=== PATIENT | male | born 1950 | race Caucasian/White ===

== ENCOUNTER → 2017-04-28 | Outpatient (CLI) | payer SELFPAY ==
[~2017-04-28] MED LIST: ACET325 PO; Acidophilus La100 GM PO; BISA10S PR; CREON DR 24,001 EACH PO; Ceftriaxone2 G1 IV; Colace250 MG PO; DRON5 PO; Hair, Skin & N1 EACH PO; LISI20 PO; MIRALAX17 GM PO; Milk Of Ma400 MG/5 M PO; PANT40 PO; QUET25 PO; SIME80CH PO; XARELTO10 MG PO
== END | disposition home or self-care (01) ==
LOC: LAB RH 23:59
DX: R05 Cough (principal)
CPT/HCPCS: 87015; 87116; 87206